=== PATIENT | female | born 1950 | race Caucasian/White ===

== ENCOUNTER 2019-01-30 05:11 | Inpatient (IN) | payer OTHER ==
[~2019-01-30] VITALS: Ht 162.6 cm; Wt 98.2 kg
[2019-01-30] MEDS ORDERED: acetaminophen 325mg tablet PO STA (05:53)
[2019-01-30] MEDS ORDERED: GABA800T11 PO ×2 (05:54)
[2019-01-30] MEDS ORDERED: ACET1TAB12 PO (05:55)
[2019-01-30] MEDS ORDERED: ACET-3067 PO (05:55)
[2019-01-30] MEDS ORDERED: ondansetron/PF 4mg/2ml inj IV STA (06:00)
--- NOTE | 2019-01-30 06:03 | NUR ---
PT FEELS NAUSEATED. SHE DRIFTS OFF TO SLEEP QUICKLY
[2019-01-30 06:06] LABS: BASOPHILS # (AUTO) 0.1 X10'3 (0-0.2); BASOPHILS % (AUTO) 0.3 % (0-1); EOSINOPHILS % (AUTO) 0 % (0-6); HEMATOCRIT 35.1 % (35.0-45.0); HEMOGLOBIN 11.6 g/dl (12.0-16.0); LYMPHOCYTES # (AUTO) 0.3 X10'3 (1.1-4.8); LYMPHOCYTES % (AUTO) 1.8 % (21-51); MEAN CORPUSCULAR HEMOGLOBIN 30.2 PG (27.0-31.0); MEAN CORPUSCULAR HGB CONC 33.1 g/dL (33.0-36.5); MEAN CORPUSCULAR VOLUME 91.2 FL (78-98); MEAN PLATELET VOLUME 9.2 FL (7.4-10.4); MONOCYTES # (AUTO) 0.6 X10'3 (0-0.9); MONOCYTES % (AUTO) 3.1 % (2-12); NEUTROPHILS # (AUTO) 18.1 X10'3 (1.8-7.7); NEUTROPHILS % (AUTO) 94.8 % (42-75); PLATELET COUNT 211 X10'3 (140-440); RED BLOOD COUNT 3.85 X10'6 (4.20-5.60); RED CELL DISTRIBUTION WIDTH 14.5 % (11.5-14.5); WHITE BLOOD COUNT 19.1 X10'3 (4.5-11.0)
[2019-01-30 06:16] LABS: INR 1.1 INR; PROTHROMBIN TIME 10.7 SECONDS (9.0-12.0)
[2019-01-30 06:19] LABS: ALANINE AMINOTRANSFERASE 19 U/L (12-78); ALBUMIN 3.4 G/DL (3.4-5.0); ALBUMIN/GLOBULIN RATIO 0.8 (1.1-1.5); ALKALINE PHOSPHATASE 117 IU/L (46-116); ANION GAP 7 (8-16); ASPARTATE AMINO TRANSFERASE 18 U/L (10-37); BILIRUBIN,TOTAL 0.4 MG/DL (0.1-1.0); BLOOD UREA NITROGEN 17 MG/DL (7-18); BUN/CREATININE RATIO 20.7 (6.6-38.0); CALCIUM 10.3 MG/DL (8.5-10.1); CHLORIDE 103 MMOL/L (99-107); CREATININE 0.82 MG/DL (0.40-0.90); GLUCOSE 150 MG/DL (70-104); POTASSIUM 4.4 MMOL/L (3.5-5.1); SODIUM 138 MMOL/L (135-145); TOTAL CARBON DIOXIDE 27.6 MMOL/L (24-32); TOTAL PROTEIN 7.7 G/DL (6.4-8.2); eGFR 69 ML/MIN
[2019-01-30 07:51] LABS: CLARITY,URINE CLEAR (Clear); COLOR,URINE YELLOW (Yellow); GLUCOSE, URINE NEGATIVE (Neg); KETONES,URINE NEGATIVE (Neg); LEUKOCYTE ESTERASE ,URINE NEGATIVE (Neg); NITRITES, URINE NEGATIVE (Neg); OCCULT BLOOD,URINE TRACE-INTACT (Neg); PH,URINE 6.5 (4.8-8.0); PROTEIN,URINE 30 mg/dl (Neg); UROBILINOGEN,URINE 0.2 E.U/dL (0.2-1.0)
[2019-01-30 07:57] LABS: UA COLLECTION TYPE STRAIGHT CATH
[2019-01-30 07:58] LABS: BACTERIA,URINE NONE SEEN /HPF (Neg); MUCUS STRANDS FEW /LPF (Neg); RBC,URINE 0-2 /HPF (0-2); SQUAMOUS EPITHELIAL CELL,UR FEW /LPF (FEW); URINE AMPHETAMINE SCREEN NEGATIVE (Neg); URINE BARBITUATE SCREEN NEGATIVE (Neg); URINE BENZODIAZEPINES SCREEN NEGATIVE (Neg); URINE CANNABINOID SCREEN NEGATIVE (Neg); URINE COCAINE SCREEN NEGATIVE (Neg); URINE METHADONE SCREEN NEGATIVE (Neg); URINE OPIATE SCREEN POSITIVE (Neg); URINE PHENCYCLIDINE SCREEN NEGATIVE (Neg); WBC,URINE NONE SEEN /HPF (0-4)
[2019-01-30 08:02] LABS: TOTAL CELLS COUNTED 100
[2019-01-30 08:04] LABS: PLATELET ESTIMATE NORMAL
[2019-01-30] MEDS: diatr meglu/diatrizoate 30ml oral sol.-(3 dose) bottle PO SCH ×3 (09:42→11:16)
[2019-01-30] MEDS ORDERED: iohexol 300mg/ml 100ml inj. ONE (10:54)
[2019-01-30 12:57] LABS: LIPASE < 50 U/L (73-393)
[2019-01-30] MEDS ORDERED: piperacillin/tazo 3.375gm/50ml 50 ML IV ONE (13:30)
[2019-01-30] MEDS ORDERED: morphine 4 MG/ML inj SYRINge IV ONE (13:35)
[2019-01-30] MEDS ORDERED: magnesium hydroxide 30ml (MOM) UD suspension PO PRN (13:45)
[2019-01-30] MEDS ORDERED: mag hydrox/Alum hydrox/simeth 30ml oral suspension PO PRN (13:45)
[2019-01-30] MEDS ORDERED: ondansetron/PF 4mg/2ml inj IV PRN (13:45)
[2019-01-30] MEDS: dextrose 5%-1/2 normal saline 1,000 ML IV SCH ×2 (13:54→17:59)
[2019-01-30] MEDS ORDERED: cloNIDine 0.1 mg tablet PO PRN (15:20)
[2019-01-30] MEDS: piperacillin/tazo 3.375gm/50ml 50 ML IV SCH ×2 (16:00→23:31)
[2019-01-30] MEDS: acetaminophen 325mg tablet PO PRN (17:14)
--- NOTE | 2019-01-30 17:25 | NUR ---
Received patient to room 348B. Patient able to ambulate with x2 assist. Patient is alert and oriented and in no apparent distress. Patient temp is 101.6 orally and c/o of headache. Tylenol given as ordered. Patient oriented to room and call light. Call light is within patient's reach and bed is low and locked.
[2019-01-30 17:29] VITALS: BP 138/50
--- NOTE | 2019-01-30 17:53 | NUR ---
DR JOHNSON NOTIFIED OF PATIENT'S POSITIVE BLOOD CULTURE AEROBIC BOTTLE DRAWN AT 0535 TODAY FROM RIGHT ARM GRAM POSTIVE COCCI IN CHAINS.
--- NOTE | 2019-01-30 18:15 | NUR ---
Received report from Osorio HATFIELD pt is resting on RA, at bedside, D51/2NS running@100,in no apparent distress
--- NOTE | 2019-01-30 18:28 | NUR ---
Problems reprioritized. Patient report given, questions answered & plan of care reviewed with ALYSIA ANTUNEZ.
[2019-01-30 19:00] VITALS: BP 142/54
[2019-01-30] MEDS: vancomycin/NS 1 GM ADD-VANTAGE 250 ML IV SCH ×2 (19:03→21:10)
[2019-01-31] VITALS: BP 164/67
[2019-01-31] MEDS: acetaminophen 325mg tablet PO PRN (04:56)
[2019-01-31 05:39] LABS: ALANINE AMINOTRANSFERASE 16 U/L (12-78); ALBUMIN 2.8 G/DL (3.4-5.0); ALBUMIN/GLOBULIN RATIO 0.7 (1.1-1.5); ALKALINE PHOSPHATASE 92 IU/L (46-116); ANION GAP 5 (8-16); ASPARTATE AMINO TRANSFERASE 19 U/L (10-37); BILIRUBIN,TOTAL 0.4 MG/DL (0.1-1.0); BLOOD UREA NITROGEN 12 MG/DL (7-18); CALCIUM 9.7 MG/DL (8.5-10.1); CHLORIDE 104 MMOL/L (99-107); GLUCOSE 149 MG/DL (70-104); SODIUM 138 MMOL/L (135-145); TOTAL CARBON DIOXIDE 28.9 MMOL/L (24-32); TOTAL PROTEIN 6.8 G/DL (6.4-8.2); eGFR 71 ML/MIN
[2019-01-31 05:53] LABS: BASOPHILS % (AUTO) 0.1 % (0-1); EOSINOPHILS % (AUTO) 0 % (0-6); HEMATOCRIT 32.6 % (35.0-45.0); HEMOGLOBIN 10.8 g/dl (12.0-16.0); LYMPHOCYTES # (AUTO) 0.5 X10'3 (1.1-4.8); MEAN CORPUSCULAR HEMOGLOBIN 30.3 PG (27.0-31.0); MEAN CORPUSCULAR HGB CONC 33.3 g/dL (33.0-36.5); MEAN PLATELET VOLUME 9.4 FL (7.4-10.4); MONOCYTES # (AUTO) 0.8 X10'3 (0-0.9); MONOCYTES % (AUTO) 5.5 % (2-12); NEUTROPHILS # (AUTO) 12.4 X10'3 (1.8-7.7); NEUTROPHILS % (AUTO) 90.4 % (42-75); PLATELET COUNT 180 X10'3 (140-440); RED BLOOD COUNT 3.58 X10'6 (4.20-5.60); RED CELL DISTRIBUTION WIDTH 14.8 % (11.5-14.5); WHITE BLOOD COUNT 13.7 X10'3 (4.5-11.0)
--- NOTE | 2019-01-31 06:00 | NUR ---
Gave report to Osorio HATFIELD pt is resting on RA in no apparent distress, call lgiht and items of freq use within reach.
--- NOTE | 2019-01-31 06:27 | NUR ---
Patient in room [facility]. I have received report from ALYSIA MORRIS and had the opportunity to ask questions and assume patient care.
[2019-01-31 07:00] VITALS: BP 123/49
[2019-01-31] MEDS: morphine 4 MG/ML inj SYRINge IV PRN (07:01)
[2019-01-31] MEDS: vancomycin inj 1,250 MG in NS 250ml IV soln IV SCH ×2 (07:08→19:37)
[2019-01-31] MEDS: enoxaparin 40mg/0.4ml syringe SUBCUT SCH (07:15)
[2019-01-31] MEDS: dextrose 5%-1/2 normal saline 1,000 ML IV SCH (08:53)
[2019-01-31] MEDS: piperacillin/tazo 3.375gm/50ml 50 ML IV SCH ×3 (09:03→23:49)
[2019-01-31] MEDS: normal saline 1000ml 1,000 ML IV SCH (11:08)
[2019-01-31 12:26] VITALS: BP_SYST 110; BP_SYST 148; BP_DIAS 55; BP_DIAS 59
[2019-01-31] MEDS ORDERED: acetaminophen w/codeine (30MG) #3 tablet PO PRN (13:30)
[2019-01-31] MEDS ORDERED: acetaminophen w/codeine (60MG) #4 tablet PO PRN (13:30)
[2019-01-31 18:00] VITALS: BP 128/59
--- NOTE | 2019-01-31 18:29 | NUR ---
Problems reprioritized. Patient report given, questions answered & plan of care reviewed with ALYSIA ROJAS.
--- NOTE | 2019-01-31 18:30 | NUR ---
Patient in room [facility]. I have received report from ARNULFO and had the opportunity to ask questions and assume patient care. ASSUMED CARE OF PT WITH RN STUDENT JOSIAH Leblanc
[2019-01-31] MEDS: gabapentin 400mg capsule PO SCH (21:00)
[2019-01-31] MEDS: lactobacillus rhamnosus 10,000 MMU CELLS/CAPSULE PO SCH (21:00)
[2019-02-01] VITALS: BP 104/62
[2019-02-01] MEDS: morphine 4 MG/ML inj SYRINge IV PRN (04:13)
[2019-02-01] MEDS: acetaminophen 325mg tablet PO PRN (04:15)
--- NOTE | 2019-02-01 04:51 | NUR ---
Student documentation: I have reviewed and agree with all interventions, assessments performed and documented by JOSIAH Rivera Medication Administration: For this medication-pass time frame, all medication were reviewed, dispensed, administered and documented per hospital policy by JOSIAH Wilde
[2019-02-01 05:49] LABS: BASOPHILS % (AUTO) 0.3 % (0-1); EOSINOPHILS % (AUTO) 0.3 % (0-6); HEMATOCRIT 32.9 % (35.0-45.0); HEMOGLOBIN 10.6 g/dl (12.0-16.0); LYMPHOCYTES # (AUTO) 0.8 X10'3 (1.1-4.8); LYMPHOCYTES % (AUTO) 5.6 % (21-51); MEAN CORPUSCULAR HEMOGLOBIN 29.8 PG (27.0-31.0); MEAN CORPUSCULAR HGB CONC 32.3 g/dL (33.0-36.5); MEAN CORPUSCULAR VOLUME 92.3 FL (78-98); MEAN PLATELET VOLUME 9.8 FL (7.4-10.4); MONOCYTES # (AUTO) 0.7 X10'3 (0-0.9); MONOCYTES % (AUTO) 5.3 % (2-12); NEUTROPHILS # (AUTO) 11.9 X10'3 (1.8-7.7); NEUTROPHILS % (AUTO) 88.5 % (42-75); PLATELET COUNT 159 X10'3 (140-440); RED BLOOD COUNT 3.56 X10'6 (4.20-5.60); RED CELL DISTRIBUTION WIDTH 14.7 % (11.5-14.5); WHITE BLOOD COUNT 13.4 X10'3 (4.5-11.0)
[2019-02-01 05:51] LABS: ALANINE AMINOTRANSFERASE 17 U/L (12-78); ALBUMIN 2.7 G/DL (3.4-5.0); ALBUMIN/GLOBULIN RATIO 0.6 (1.1-1.5); ALKALINE PHOSPHATASE 98 IU/L (46-116); ANION GAP 7 (8-16); ASPARTATE AMINO TRANSFERASE 21 U/L (10-37); BILIRUBIN,TOTAL 0.6 MG/DL (0.1-1.0); BLOOD UREA NITROGEN 12 MG/DL (7-18); BUN/CREATININE RATIO 14.6 (6.6-38.0); CALCIUM 9.8 MG/DL (8.5-10.1); CHLORIDE 103 MMOL/L (99-107); CREATININE 0.82 MG/DL (0.40-0.90); GLUCOSE 124 MG/DL (70-104); POTASSIUM 4.3 MMOL/L (3.5-5.1); SODIUM 138 MMOL/L (135-145); TOTAL CARBON DIOXIDE 28.4 MMOL/L (24-32); eGFR 69 ML/MIN
--- NOTE | 2019-02-01 06:15 | NUR ---
Patient in room [facility]. I have received report from ALYSIA Kelly and had the opportunity to ask questions and assume patient care. Patient assisted to the bathroom at this time. patient oriented to the blue cord to pull if needing help in there. Patient stated she is okay and will call if in need of help. patient very steady on her feet.
--- NOTE | 2019-02-01 06:35 | NUR ---
Problems reprioritized. Patient report given, questions answered & plan of care reviewed with RICHARD.
[2019-02-01 07:13] VITALS: BP 156/73
[2019-02-01] MEDS: vancomycin inj 1,250 MG in NS 250ml IV soln IV SCH (07:30)
[2019-02-01] MEDS: lactobacillus rhamnosus 10,000 MMU CELLS/CAPSULE PO SCH (07:34)
[2019-02-01] MEDS: gabapentin 400mg capsule PO SCH ×2 (07:34→13:00)
[2019-02-01] MEDS: enoxaparin 40mg/0.4ml syringe SUBCUT SCH (07:35)
[2019-02-01] MEDS: piperacillin/tazo 3.375gm/50ml 50 ML IV SCH (09:24)
[2019-02-01 11:00] VITALS: BP 131/64
[2019-02-01] MEDS ORDERED: AMOX500C2 PO (11:55)
[2019-02-01] MEDS: normal saline 1000ml 1,000 ML IV SCH ×2 (13:20)
--- NOTE | 2019-02-01 14:00 | NUR ---
Patient discharged home via spouse. Patient taken from unit via wheelchair with x1 staff. patient alert, oriented, and in no apparent distress at this time. Patient stated an understanding of discharge instructions and states that she has an appointment on 02/03/19 with her PCP and intends on making it to that appointment. Patient and her are driving back to [place] today. patient was given instructions on going back to the ED if feelings of confusion or other symptoms of illness occur. Patient took all belongings with her including discharge instructions and medications. PIV removed with cannula intact.
[2019-02-01] MEDS ORDERED: VANCOMYCIN LEVEL IV NR (18:30)
== END 2019-02-01 14:00 | disposition home or self-care (01) | DRG 445 ==
LOC: ER 05:12 → ED HOLD 13:51 → SUR 3N 17:00
PROVIDERS: ADMIT Internal Medicine; ATTEND Family Medicine
PROC: BW211ZZ Computerized Tomography (CT Scan) of Abdomen and Pelvis using Low Osmolar Contrast (ICD-10-PCS; principal; 2019-01-30)
DX: K80.70 Calculus of gallbladder and bile duct without cholecystitis without obstruction (principal); R65.10 Systemic inflammatory response syndrome (SIRS) of non-infectious origin without acute organ dysfunction; R11.2 Nausea with vomiting, unspecified; K82.8 Other specified diseases of gallbladder; K57.30 Diverticulosis of large intestine without perforation or abscess without bleeding; K44.9 Diaphragmatic hernia without obstruction or gangrene; G60.9 Hereditary and idiopathic neuropathy, unspecified; D72.829 Elevated white blood cell count, unspecified; G89.29 Other chronic pain; Z79.899 Other long term (current) drug therapy; Z98.51 Tubal ligation status
CPT/HCPCS: 36415; 71045; 74177; 76700; 80053; 80305; 81001; 82948; 83605; 83690; 83880; 85025; 85610; 87040; 87070; 87077; 87186; 87502; 87503; 93005; 96374; 99291; G0378; J1650; J2270; J2405; J2543; J3370; J7030; Q9963; Q9967